=== PATIENT | female | born 1990 | race Hispanic/Latino ===

== ENCOUNTER 2017-11-22 14:25 | Emergency (ER) | payer BC, SELFPAY ==
--- NOTE | 2017-11-22 15:29 | RAD ---
LUMBAR SPINE 3 VIEWS: HISTORY: A 27-year-old female with a history of lumbosacral back pain after a fall. FINDINGS: Disk spaces were accurately preserved. No evidence for acute fracture or dislocation or malalignment . IMPRESSION: Unremarkable 3-view lumbar spine. POS: OFF
--- NOTE | 2017-11-22 15:30 | RAD ---
SACRUM AND COCCYX 3 VIEWS: HISTORY: A 27-year-old female with a history of sacral and coccygeal pain after a fall. FINDINGS: No evidence for acute fracture or dislocation. No opaque foreign body. IMPRESSION: Unremarkable sacrum and coccyx. POS: OFF
[2017-11-22] MEDS ORDERED: Ketorolac Tromethamine 30 MG/ML VIAL ONE (16:52)
== END 2017-11-22 17:15 | disposition home or self-care (01) ==
LOC: ERS 14:25
DX: S30.0XXA Contusion of lower back and pelvis, initial encounter (principal); W18.30XA Fall on same level, unspecified, initial encounter
CPT/HCPCS: 72100; 72220; 96372; J1885

== ENCOUNTER 2018-05-30 13:51 | Emergency (ER) | payer SELFPAY ==
[2018-05-30 15:03] LABS: Bilirubin Negative (Negative); Blood, Urine Trace (Negative); Clarity CLOUDY (Clear); Glucose, Urine (Dipstick) Negative (Negative); Leukocyte Trace (Negative); Nitrite Negative (Negative); Protein, Urine (Dipstick) Negative (Neg-Trace); Specific Gravity, Urine 1.036 (1.002-1.036); Urobilinogen 0.2 mg/dL (0.2-1.0); pH, Urine 5.5 (5.0-9.0)
[2018-05-30 15:04] LABS: Pregnancy Test - Urine (BHCG) Negative (Negative); Pregu Control Background? CLEAR/WHITE (CLR/WHITE); Pregu Control Bar Appear? YES (CONTROL BAR); Specific Gravity 1.036 (1.002-1.036)
[2018-05-30 15:05] LABS: Bacteria/HPF Rare-Few HPF (None Seen); Pathc Cast-AUWi Flag 1.88 (0-2.49); RBC/HPF 0-3 HPF (0-3)
[2018-05-30 15:09] LABS: Hyaline Casts/LPF 0-3 HYALINE CAST LPF (0-3 Hyaline)
[2018-05-30 15:33] LABS: #Basophils 0.1 thou/uL (0.0-0.2); #Eosinphils 0.1 thou/uL (0.0-0.7); #Lymphocytes 2.5 thou/uL (1.20-3.40); #Monocytes 0.4 thou/uL (0.11-0.59); #Neutrophils 3.8 thou/uL (1.40-6.50); %Eosinophils 0.9 % (0.0-10.0); %Lymphocytes 36.6 % (21.0-51.0); %Monocytes 5.7 % (0.0-10.0); %Neutrophils 55.6 % (42.0-75.0); Hemoglobin 12.8 g/dL (12.0-16.0); Mean Corpuscular HGB CONC 32.5 g/dL (32.0-36.0); Mean Corpuscular Hemoglobin 30.3 pg (27.0-31.0); Mean Corpuscular Volume 93.5 fL (78.0-98.0); Platelet Count 278 thou/uL (130-400); RBC Distribution Width 11.7 % (11.5-14.5); Red Blood Cell (RBC) Count 4.21 mill/uL (4.20-5.40); White Blood Cell (WBC) Count 6.7 thou/uL (4.8-10.8)
--- NOTE | 2018-05-30 16:47 | ULT ---
TRANSABDOMINAL AND TRANSVAGINAL PELVIC ULTRASOUND WITH DOPPLER: Date: 05/30/18 PROVIDED CLINICAL HISTORY: Pelvic pain, negative test. FINDINGS: Uterus measures 8.3 x 4.3 x 4.3 cm and demonstrates an unremarkable sonographic appearance. Endometri al thickness is about 8.0 mm. Right ovary measures about 2.3 x 1.3 x 1.3 cm and demonstrates a normal sonographic appearance. Left ovary measures about 3.2 x 1.3 x 1.9 cm and demonstrates a simple appearing 2.2 cm physiologic c yst. Color Doppler and spectral analysis of the ovarian waveforms demonstrates normal flow bilaterally. Th ere is no significant free pelvic fluid evident. IMPRESSION: No evidence for an acute process. POS: TPC
[2018-06-03 01:44] LABS: Chlamydia by PCR Not Detected (NotDetected); GC by PCR Not Detected (NotDetected)
== END 2018-05-30 18:42 | disposition home or self-care (01) ==
LOC: ERS 13:51
DX: O03.9 Complete or unspecified spontaneous abortion without complication (principal); O23.591 Infection of other part of genital tract in pregnancy, first trimester
CPT/HCPCS: 36415; 76856; 81003; 81015; 81025; 84702; 85025; 86900; 86901; 87480; 87491; 87510; 87591; 87660

== ENCOUNTER 2019-09-11 10:03 | Emergency (ER) | payer OTHER, SELFPAY ==
[2019-09-11 17:22] LABS: SARS-CoV-2 MS2 Positive; SARS-CoV-2 N Gene Negative; SARS-CoV-2 S Gene Negative; SARS-CoV-2 orf1ab Negative
== END 2019-09-11 11:14 | disposition home or self-care (01) ==
LOC: ERS 10:03
DX: R50.9 Fever, unspecified (principal); Z20.828 Contact with and (suspected) exposure to other viral communicable diseases
CPT/HCPCS: 87635; 99283; U0003